=== PATIENT | female | born 1940 | race Caucasian/White ===

== ENCOUNTER → 2017-10-25 | Outpatient (CLI) | payer MEDICARE, OTHER | LOC: M.RAD 15:58 | DX: M25.532 Pain in left wrist (principal); M79.642 Pain in left hand; Z88.8 Allergy status to other drugs, medicaments and biological substances; Z88.1 Allergy status to other antibiotic agents; Z88.5 Allergy status to narcotic agent; Z88.6 Allergy status to analgesic agent ==

== ENCOUNTER 2018-05-29 17:01 | Emergency (ER) | payer MEDICARE, OTHER ==
[~2018-05-29] VITALS: Ht 154.9 cm; Wt 74.8 kg
[2018-05-29] MEDS ORDERED: COREG6.25 MG PO (17:18)
[2018-05-29] MEDS ORDERED: TYLENOL325 MG PO (17:18)
[2018-05-29] MEDS ORDERED: PLAVIX 75 MG TA75 M1 PO (17:18)
[2018-05-29] MEDS ORDERED: ASPIR 8181 MG PO (17:18)
[2018-05-29] MEDS ORDERED: LASIX 20 MG TAB20 MG PO (17:19)
[2018-05-29] MEDS ORDERED: ZETIA10 MG PO (17:19)
[2018-05-29 17:20] LABS: ABSOLUTE BASOPHILS 0.1 thou/uL (0.0-0.2); ABSOLUTE EOSINOPHILS 0.2 thou/uL (0.0-0.7); ABSOLUTE LYMPHOCYTES 2.2 thou/uL (0.8-5.3); ABSOLUTE MONOCYTES 0.6 thou/uL (0.0-1.2); ABSOLUTE NEUTROPHILS 6.4 thou/uL (1.6-8.1); EOSINOPHILS 2.4 %; HEMATOCRIT 34.2 % (37.0-47.0); HEMOGLOBIN 11.7 gm/dL (12.0-15.0); LYMPHOCYTES 22.7 %; MCH 31.1 pg (26.0-34.0); MCHC 34.1 g/dL (28.0-37.0); MONOCYTES 6.6 %; MPV 8.6 fl. (7.2-11.1); NUCLEATED RBCS 0 /100WBC; PLATELET COUNT* 242 thou/uL (150-400); POLYS 67.3 %; RBC 3.76 mil/uL (4.20-5.00); RDW-CV 12.8 % (10.5-14.5); WBC 9.5 thou/uL (4.0-11.0)
[2018-05-29] MEDS ORDERED: GARLIC1 EACH PO (17:20)
[2018-05-29] MEDS ORDERED: AMARYL2 MG PO (17:20)
[2018-05-29] MEDS ORDERED: MAGOX 400400 MG PO (17:21)
[2018-05-29] MEDS ORDERED: COZAAR 25 MG TA25 M1 PO (17:21)
[2018-05-29] MEDS ORDERED: CENTRUM SILVER1 EAC4 PO (17:21)
[2018-05-29] MEDS ORDERED: OMEGA-31000 M1 PO (17:22)
[2018-05-29 17:31] LABS: ANION GAP 4 mmol/L (7-16); BUN 65 mg/dL (7-18); CALCIUM 9.5 mg/dL (8.5-10.1); CHLORIDE 103 mmol/L (98-107); CO2 31 mmol/L (21-32); CREATININE 1.4 mg/dL (0.6-1.3); GLUCOSE 135 mg/dL (70-99); POTASSIUM 4.4 mmol/L (3.5-5.1); SODIUM 138 mmol/L (136-145)
[2018-05-29 17:41] LABS: PROTIME 9.9 Seconds (9.20-11.50)
[2018-05-29 17:47] LABS: ALKALINE PHOSPHATASE 69 U/L (46-116); LIPASE 129 U/L (73-393); MAGNESIUM 2.2 mg/dL (1.8-2.4); NT-PRO BRAIN NAT PEPTIDE 2387 pg/mL (<300); SGOT 17 U/L (15-37); SGPT 19 U/L (30-65); TOTAL BILIRUBIN 0.3 mg/dL (<0.1-1.0); TOTAL PROTEIN 6.9 g/dL (6.4-8.2); TROPONIN-I LEVEL <0.06 ng/mL (<0.06)
[2018-05-29 19:00] VITALS: BP 151/65
--- NOTE | 2018-05-30 11:34 | EKG ---
[place] [address] ELECTROCARDIOGRAM REPORT Name: MITCH ROLDAN Room: [facility]#: [id number] Admission: 05/29/18 Attend Phys: Discharge: 05/29/18 Date of : 44 Report #: [id number] THIS REPORT FOR: //name// [facility] ED Test Date: 2018-05-29 Test Time: 17:04:16 Pat Name: MITCH ROLDAN Department: Room: Gender: F [employer]: Eric Concepcion : 1940 Requested By: Luis Daniel Mims Order Number: [id number] MD: Eddie Barclay Measurements Intervals [place] Rate: 102 P: 42 OK: 194 QRS: 21 QRSD: 195 T: 151 QT: 366 QTc: 477 Interpretive Statements Sinus tachycardia Probable left atrial enlargement Nonspecific intraventricular conduction delay Inferior infarct, acute (RCA) Anteroseptal infarct, age indeterminate Lateral leads are also involved Probable RV involvement, suggest recording right precordial leads No previous ECG available for comparison Electronically Signed On 05-30-2018 11:34:32 [employer] by Eddie Barclay [email or web address] <ELECTRONICALLY SIGNED> By: Eddie Barclay MD, FAC 05/30/18 1134 1704 1704 Eddie Barclay MD, FAC /EPI
== END 2018-05-29 19:00 | disposition short-term general hospital (02) ==
LOC: M.ERS 17:01
PROVIDERS: Emergency Medicine Emergency Medical Services
DX: R07.89 Other chest pain (principal); Z88.1 Allergy status to other antibiotic agents; Z88.5 Allergy status to narcotic agent; Z88.8 Allergy status to other drugs, medicaments and biological substances; Z95.5 Presence of coronary angioplasty implant and graft